=== PATIENT | male | born 1960 | race Caucasian/White ===

== ENCOUNTER 2018-03-27 08:29 | Emergency (ER) | payer OTHER, MEDICAID ==
[2018-03-27] MEDS: ERTAPENEM SODIUM 1 GM in SOD CHLORIDE 0.9% 100 ML IVPB (09:30)
[2018-03-27 10:06] LABS: ADD MAN DIFF? NO
[2018-03-27 10:09] LABS: WHITE BLOOD COUNT 11.7 10^3/ul (4.8-10.8)
[2018-03-27 10:09] LABS: BASOPHIL # 0.1 10^3/ul (0.0-0.1); BASOPHILS % 0.4 % (0.0-2.0); EOSINOPHILS # 0.2 10^3/ul (0.0-0.5); EOSINOPHILS % 1.6 % (0.0-7.0); LYMPHOCYTES # 1.6 10^3/ul (0.8-2.9); LYMPHOCYTES % 13.6 % (15.0-51.0); MEAN CORPUSCULAR HEMOGLOBIN 27.6 pg (29.0-33.0); MEAN CORPUSCULAR HGB CONC 33.3 g/dl (32.0-37.0); MEAN CORPUSCULAR VOLUME 82.8 fl (82.0-101.0); MEAN PLATELET VOLUME 8.8 fl (7.4-10.4); MONOCYTE # 1.2 10^3/ul (0.3-0.9); MONOCYTES % 10.4 % (0.0-11.0); NEUTROPHIL # 8.6 10^3/ul (1.6-7.5); NEUTROPHILS % 73.5 % (39.0-77.0); PLATELET COUNT 526 10^3/UL (140-415); RED BLOOD COUNT 4.35 10^6/ul (4.70-6.10); RED CELL DISTRIBUTION WIDTH 12.3 % (11.5-14.5)
[2018-03-27 10:25] LABS: ALANINE AMINOTRANSFERASE 46 IU/L (13-69); ALBUMIN 3.7 g/dl (3.3-4.9); ALBUMIN/GLOBULIN RATIO 1.27; ALKALINE PHOSPHATASE 95 IU/L (42-121); ANION GAP 8 (5-13); ASPARTATE AMINO TRANSFERASE 37 IU/L (15-46); BILIRUBIN,INDIRECT 0.1 mg/dl (0-1.1); BILIRUBIN,TOTAL 0.1 mg/dl (0.2-1.3); BLOOD UREA NITROGEN 14 mg/dl (7-20); CALCIUM 8.5 mg/dl (8.4-10.2); CARBON DIOXIDE 30 mmol/L (21-31); CHLORIDE 100 mmol/L (97-110); CREATININE 0.61 mg/dl (0.61-1.24); Estimated GFR > 60 mL/min (>60); GLUCOSE 135 mg/dl (70-220); POTASSIUM 4.2 mmol/L (3.5-5.1); SODIUM 138 mmol/L (135-144); TOTAL PROTEIN 6.6 g/dl (6.1-8.1)
[2018-03-27] MEDS ORDERED: SOD CHLORIDE 0.9% 1,000 ML IV (12:48)
[2018-03-27] MEDS ORDERED: HYDROCODONE/APAP (5/325) TAB PO (13:00)
[2018-03-27] MEDS ORDERED: DOCUSATE SODIUM 100 MG CAP PO (13:00)
[2018-03-27] MEDS ORDERED: ONDANSETRON 4 MG INJ IV ×2 (13:00)
[2018-03-27] MEDS ORDERED: NACL 0.9% 3 ML SYG IV (13:00)
[2018-03-27] MEDS ORDERED: ALBUTEROL/IPRATROPIUM (NEB) 3 ML AMP HHN (13:00)
[2018-03-27] MEDS ORDERED: hydrALAzine 20 MG INJ IV (13:00)
[2018-03-27] MEDS ORDERED: NA PHOSPHATE/BIPHOS 133 ML ENEMA PR (13:00)
[2018-03-27] MEDS ORDERED: MAGNESIUM HYDROXIDE 30ML CUP PO (13:00)
[2018-03-27] MEDS ORDERED: VANCOMYCIN IV PER PHARMACY XX (13:00)
[2018-03-27] MEDS ORDERED: NITROGLYCERIN (SL) 0.4 MG TAB SL (13:00)
[2018-03-27] MEDS ORDERED: LORAZEPAM 2 MG INJ IV (13:00)
[2018-03-27] MEDS ORDERED: ACETAMINOPHEN 325 MG TAB PO ×2 (13:00)
[2018-03-27] MEDS ORDERED: morphine 2 MG INJ IV (13:00)
[2018-03-27 14:11] LABS: FREE T4 (FREE THYROXINE) 1.35 ng/dl (0.64-1.79)
[2018-03-27] MEDS ORDERED: PIPER-TAZO 3.375 GM IV (PMX) 100 ML IVPB (18:00)
[2018-03-27] MEDS ORDERED: HEPARIN 5,000 UNIT/1 ML VIAL SC (21:00)
[2018-03-28] MEDS ORDERED: FERROUS SULFATE (EC) 325 MG TAB PO (09:00)
== END 2018-03-27 14:44 | disposition left against medical advice (07) ==
LOC: E/R 08:29
DX: L03.113 Cellulitis of right upper limb (principal); F17.210 Nicotine dependence, cigarettes, uncomplicated
CPT/HCPCS: 36415; 80053; 84439; 85025; 87040; 93971; 96374; 99284-25

== ENCOUNTER → 2018-10-26 | Emergency (ER) | payer OTHER | END | disposition home or self-care (01) | LOC: FTE 10:54 | DX: L02.413 Cutaneous abscess of right upper limb (principal); Z87.891 Personal history of nicotine dependence | CPT/HCPCS: 99283; Z7502 ==

== ENCOUNTER 2018-11-26 11:52 | Emergency (ER) | payer OTHER | END 2018-11-26 13:00 | disposition home or self-care (01) | LOC: FTE 11:52 | DX: L02.413 Cutaneous abscess of right upper limb (principal); L02.414 Cutaneous abscess of left upper limb; F17.210 Nicotine dependence, cigarettes, uncomplicated | CPT/HCPCS: 99283; Z7502 ==